=== PATIENT | female | born 1960 | race Caucasian/White ===

== ENCOUNTER 2019-04-25 12:46 | Inpatient (IN) ==
[2019-04-25] MEDS ORDERED: cefTRIAXone 2,000 MG in Water for inj. (sterile) 10 ML IVP ONE (12:48)
[2019-04-25] MEDS ORDERED: methylPREDNISolone 125 MG/2 ML VIAL IVP ONE (12:48)
[2019-04-25] MEDS ORDERED: Ipratropium/Albuterol Neb 3 ML IH ONE (12:48)
[2019-04-25] MEDS ORDERED: Azithromycin 500 MG in 0.9 % Sodium Chloride 250 ML IVPB ONE (12:48)
[2019-04-25] MEDS ORDERED: 0.9 % Sodium Chloride 1,000 ML IVC ONE (12:48)
--- NOTE | 2019-04-25 12:55 | Emergency Department Note ---
Disposition Clinical Impression: Community acquired pneumonia Qualifiers: Laterality: unspecified laterality Qualified Code(s): J18.9 - Pneumonia, unspecified organism Disposition: Admitted As Inpatient Condition: Fair Time of Disposition: 14:24 SOB HPI - General Chief Complaint: ED Shortness of Breath/Dyspnea Stated Complaint: low oxygen sat Time Seen by Provider: 04/25/19 12:48 Source: patient Mode of arrival: private vehicle Limitations: no limitations Nursing Notes Reviewed: Yes Vital Signs Reviewed: Yes - History of Present Illness Patient relates that she has had increased cough and shortness of breath. She has a home pulse ox and states that her saturations have been mainly in the 60s and 70s. She states she normally will run about 92%. In triage she is saturating 81% and was brought immediately to a room. She denies being on home oxygen. Chest have a cough which is nonproductive. She denies fevers, chills, palpitation or chest pain. She is not having abdominal pain, nausea or vomiting. She denies weakness or dizziness. She denies any lower extremity swelling or pain or immobilization. She reports a slight headache. She has been exposed to her who had an upper respiratory infection about a week ago. She is concerned because she was admitted for pneumonia in November. She denies history of recurrent breathing trouble including any type of asthma or COPD. Pt Subjective Complaint: shortness of breath, cough Onset (ago): day(s) Context: recent illness Severity: moderate, severe Consistency/Duration: gradually worsening Improves with: rest Worsens with: exertion Associated symptoms: Reports: cough, wheezing. Denies: chest pain, pain with inspiration, fever, sputum production, orthopnea, lower extremity pain, polyuria, polydipsia, parasthesias, palpitations, hemoptysis, diaphoresis, nausea/vomiting, syncope, abdominal pain, rash, sense of impending doom Treatment prior to arrival: none Cough present: Yes Cough Description: Voluntary, Moist, Rattling, Wheezy Cough Frequency: Intermittent Sputum production: No - Related Data Home oxygen amount: none Home Medications Medication Instructions Recorded Confirmed FLUoxetine HCl [Prozac] 80 mg PO DAILY 06/11/15 12/26/18 Lisinopril [Zestril] 10 mg PO DAILY 06/11/15 12/26/18 Cyanocobalamin (Vitamin B-12) 50 mcg PO DAILY 06/15/15 12/26/18 [Vitamin B-12] Vitamin D 1,000 mg PO DAILY 06/15/15 12/26/18 Ferrous Sulfate, Dried [Ferrous 500 mg MC DAILY 04/10/18 12/26/18 Sulfate] Allergies Allergy/AdvReac Type Severity Reaction Status Date / Time Penicillins Allergy Hives Verified 04/10/18 12:04 All systems ED: reviewed and negative except as stated. Past Medical History - Past Medical History Attestation: Yes The following information was validated with the patient. Source: patient, old records reviewed, nursing notes reviewed Medical history: Reports: arthritis, hypertension, seizures Surgical history: Reports: breast surgery Psychiatric history: Reports: anxiety, depression, panic disorder - Social History Smoking Status: Current every day smoker Smokeless Tobacco Status: No Alcohol use: Reports: none Drug use: Reports: none Physical Exam - General Limitations: no limitations General appearance: alert, in no apparent distress - Head Head exam: atraumatic, normocephalic, normal inspection - Eye Eye exam: Present: normal appearance, PERRL, EOMI - ENT ENT exam: normal exam, normal oropharynx, mucous membranes moist - Neck Neck exam: Present: normal inspection, full ROM, trachea midline. Absent: tenderness, lymphadenopathy - Chest Chest inspection: Present: normal inspection, symmetric chest wall rise - Respiratory Respiratory exam: Present: respiratory distress, wheezes, prolonged expiratory phase. Absent: accessory muscle use - Cardiovascular Cardiovascular exam: Present: regular rate, normal rhythm, normal heart sounds. Absent: tachycardia - Abdominal Exam Abdominal exam: Present: soft, Non-Tender, normal bowel sounds. Absent: tenderness, distention, guarding, rebound, rigidity - Extremities Exam Extremities exam: Present: normal inspection, full ROM, normal capillary refill. Absent: tenderness, pedal edema, calf tenderness - Expanded Lower Extremity Exam Hip/Pelvis exam: Present: normal inspection, full ROM Upper leg exam: Present: normal inspection, full ROM Knee exam: Present: normal inspection, full ROM Lower leg exam: Present: normal inspection, full ROM Ankle exam: Present: normal inspection, full ROM Foot/toe exam: Present: normal inspection, full ROM Neurovascular/Tendon exam: Present: normal capillary refill. Absent: motor deficit, sensory deficit, tendon deficit Gait: observed and normal - Back Exam Back exam: Present: normal inspection, full ROM. Absent: tenderness, CVA tenderness (R), CVA tenderness (L) - Neurological Exam Neurological exam: Present: alert, oriented X3, normal gait - Psychiatric Psychiatric exam: Present: normal affect, normal mood. Absent: agitated, anxious - Skin Skin exam: Present: warm, dry, intact, normal color. Absent: diaphoresis Course Course Narrative: 1430: Care is discussed with the patient, family and Dr. Rivera. The patient did not want to stay in the hospital and absolutely refuses transfer. She is willing to stay at this facility. I talked to Dr. Rivera and verbal orders have been obtained for her observation and further treatment. Vital Signs Temperature 97.8 F 04/25/19 12:48 Pulse Rate 77 04/25/19 12:48 Respiratory Rate 22 04/25/19 12:48 Blood Pressure 123/74 04/25/19 12:48 O2 Sat by Pulse Oximetry 94 04/25/19 12:48 Temperature 97.8 F 04/25/19 12:48 Pulse Rate 97 04/25/19 14:06 Respiratory Rate 18 04/25/19 14:06 Blood Pressure 110/73 04/25/19 14:06 O2 Sat by Pulse Oximetry 94 04/25/19 14:06 Oxygen Delivery Oxygen Delivery Nasal Cannula Shortness of Breath/Dyspnea - Differential Diagnosis Likely: acute exacerbation of chronic obstructive airways disease, asthma with exacerbation - Lab Data Lab results reviewed: Yes I reviewed the patient's lab results. Result diagrams: 04/25/19 13:13 04/25/19 13:13 Lab Results 04/25/19 04/25/19 04/25/19 Range/Units 13:13 13:13 13:13 WBC 13.6 H (4.3-11.1) K/mcL RBC 4.55 (3.82-4.97) M/mcL Hgb 14.0 (11.5-15.4) g/dL Hct 45.4 H (35.3-44.9) % MCV 99.8 (83.0-100.0) fL MCH 30.8 (28.0-33.3) pg MCHC 30.8 L (31.6-35.5) g/dL RDW 15.6 H (11.5-14.5) % Plt Count 196 (140-400) K/mcL MPV 11.0 (9.4-12.4) fL Immature Gran % 0.5 (0-4) % Seg Neutrophils % 80.4 % Lymphocytes % 10.7 % Monocytes % 6.5 % Eosinophils % 1.7 % Basophils % 0.2 % Neutrophils # 10.9 H (1.6-8.9) K/mcL Lymphocytes # 1.5 (0.6-4.6) K/mcL Monocytes # 0.9 (0.0-1.3) K/mcL Eosinophils # 0.2 (0.0-0.6) K/mcL Basophils # 0.0 (0.0-0.2) K/mcL PT 13.5 H (9.4-12.1) Seconds INR 1.2 APTT 31.1 (26.0-36.0) Seconds D-Dimer 779 H (0-500) ng/mLFEU Sodium 138 (136-145) mEq/L Potassium 4.1 (3.5-5.1) mEq/L Chloride 111 H (98-107) mEq/L Carbon Dioxide 16 L (23-29) mEq/L BUN 10 (6-20) mg/dL Creatinine 0.75 (0.60-1.20) mg/dL Est GFR ( Amer) > 60 (> 60) Est GFR (Non-Af Amer) > 60 (> 60) BUN/Creatinine Ratio 13 (6-26) Glucose 60 L (70-105) mg/dL Calculated Osmolality 283 (280-300) Lactic Acid (0.5-2.2) mmol/L Calcium 7.9 L (8.6-10.3) mg/dL Total Bilirubin 0.5 (0.3-1.0) mg/dL Direct Bilirubin 0.1 (0.0-0.2) mg/dL Indirect Bilirubin 0.4 (0.0-1.2) mg/dL AST 33 (13-39) Units/L ALT 10 (7-52) Units/L Alkaline Phosphatase 104 (34-104) Units/L Troponin I < 0.03 (< 0.04) ng/mL B-Natriuretic Peptide (Less than 100) pg/mL Serum Total Protein 6.5 (6.4-8.9) g/dL Albumin 3.7 (3.5-5.7) g/dL Globulin 2.8 (2.4-3.5) g/dL Albumin/Globulin Ratio 1.3 (1.1-2.2) 04/25/19 04/25/19 Range/Units 13:13 13:40 WBC (4.3-11.1) K/mcL RBC (3.82-4.97) M/mcL Hgb (11.5-15.4) g/dL Hct (35.3-44.9) % MCV (83.0-100.0) fL MCH (28.0-33.3) pg MCHC (31.6-35.5) g/dL RDW (11.5-14.5) % Plt Count (140-400) K/mcL MPV (9.4-12.4) fL Immature Gran % (0-4) % Seg Neutrophils % % Lymphocytes % % Monocytes % % Eosinophils % % Basophils % % Neutrophils # (1.6-8.9) K/mcL Lymphocytes # (0.6-4.6) K/mcL Monocytes # (0.0-1.3) K/mcL Eosinophils # (0.0-0.6) K/mcL Basophils # (0.0-0.2) K/mcL PT (9.4-12.1) Seconds INR APTT (26.0-36.0) Seconds D-Dimer (0-500) ng/mLFEU Sodium (136-145) mEq/L Potassium (3.5-5.1) mEq/L Chloride (98-107) mEq/L Carbon Dioxide (23-29) mEq/L BUN (6-20) mg/dL Creatinine (0.60-1.20) mg/dL Est GFR ( Amer) (> 60) Est GFR (Non-Af Amer) (> 60) BUN/Creatinine Ratio (6-26) Glucose (70-105) mg/dL Calculated Osmolality (280-300) Lactic Acid 1.7 (0.5-2.2) mmol/L Calcium (8.6-10.3) mg/dL Total Bilirubin (0.3-1.0) mg/dL Direct Bilirubin (0.0-0.2) mg/dL Indirect Bilirubin (0.0-1.2) mg/dL AST (13-39) Units/L ALT (7-52) Units/L Alkaline Phosphatase (34-104) Units/L Troponin I (< 0.04) ng/mL B-Natriuretic Peptide 124 H (Less than 100) pg/mL Serum Total Protein (6.4-8.9) g/dL Albumin (3.5-5.7) g/dL Globulin (2.4-3.5) g/dL Albumin/Globulin Ratio (1.1-2.2) - Radiology Data Radiology results reviewed: Yes I reviewed the patient's radiology results. Single view chest x-rays performed. This shows diffuse interstitial infiltrates. This is concerning for multifocal pneumonia. She does not appear to be in fluid overload with any cephalization of the venous system. I do not see effusion or pneumothorax. Cardiac silhouette is borderline enlarged. No other acute abnormality is seen. This is on my interpretation. Impressions Chest X-Ray 04/25/19 12:48 IMPRESSION: Progressive, diffuse bilateral pulmonary infiltrates. Findings are concerning for an atypical infectious/inflammatory process. D/ / Tremaine Gomes MD / Tremaine Gomes MD Interpreting Provider: Tremaine Gomes MD Critical Care Time Critical Care Time: Yes Total Critical Care Time: 45 Attestation: As this patient did present with signs and symptoms of potential life- threatening illness requiring my urgent intervention, total critical care time in this patient's care has been 45 minutes, not withstanding separately reportable procedures.
[2019-04-25 13:19] LABS: Basophils % 0.2 %; Eosinophils # 0.2 K/mcL (0.0-0.6); Eosinophils % 1.7 %; Hematocrit 45.4 % (35.3-44.9); Immature Granulocytes % 0.5 % (0-4); Lymphocytes # 1.5 K/mcL (0.6-4.6); Lymphocytes % 10.7 %; Mean Corpuscular HGB Conc 30.8 g/dL (31.6-35.5); Mean Corpuscular Hemoglobin 30.8 pg (28.0-33.3); Mean Corpuscular Volume 99.8 fL (83.0-100.0); Monocytes # 0.9 K/mcL (0.0-1.3); Monocytes % 6.5 %; Neutrophils # 10.9 K/mcL (1.6-8.9); Platelet Count 196 K/mcL (140-400); Red Blood Count 4.55 M/mcL (3.82-4.97); Red Cell Distribution Width 15.6 % (11.5-14.5); Segmented Neutrophils % 80.4 %; White Blood Count 13.6 K/mcL (4.3-11.1)
[2019-04-25 13:27] LABS: INR 1.2; Prothrombin Time 13.5 Seconds (9.4-12.1)
[2019-04-25 13:29] LABS: Activated Partial Thrombo Time 31.1 Seconds (26.0-36.0)
[2019-04-25 13:38] LABS: Alanine Aminotransferase 10 Units/L (7-52); Albumin 3.7 g/dL (3.5-5.7); Albumin/Globulin Ratio 1.3 (1.1-2.2); Alkaline Phosphatase 104 Units/L (34-104); Aspartate Amino Transferase 33 Units/L (13-39); BUN/Creatinine Ratio 13 (6-26); Bilirubin,Direct 0.1 mg/dL (0.0-0.2); Bilirubin,Indirect 0.4 mg/dL (0.0-1.2); Bilirubin,Total 0.5 mg/dL (0.3-1.0); Blood Urea Nitrogen 10 mg/dL (6-20); Calcium 7.9 mg/dL (8.6-10.3); Carbon Dioxide 16 mEq/L (23-29); Chloride 111 mEq/L (98-107); Globulin 2.8 g/dL (2.4-3.5); Glucose 60 mg/dL (70-105); Osmolality,Calculated 283 (280-300); Potassium 4.1 mEq/L (3.5-5.1); Sodium 138 mEq/L (136-145); Total Protein 6.5 g/dL (6.4-8.9); Troponin I < 0.03 ng/mL (< 0.04); eGFR For African Americans > 60 (> 60); eGFR For Non-African Americans > 60 (> 60)
[2019-04-25] MEDS ORDERED: Ketorolac 30 MG/ML VIAL IVP ONE (14:44)
[2019-04-25] MEDS ORDERED: *HR* LORazepam 2 MG/ML VIAL IVP ONE (14:44)
[2019-04-25] MEDS ORDERED: Albuterol 2.5 MG/3 ML NEBULIZER IH PRN (15:03)
[2019-04-25] MEDS ORDERED: Ondansetron 4 MG/2 ML VIAL IVP PRN (15:03)
[2019-04-25] MEDS ORDERED: MOM Conc 10 ML UD.LIQ PO PRN (15:03)
[2019-04-25] MEDS ORDERED: Mag Hydrox/Al Hydrox/Simeth 30 ML UDC PO PRN (15:03)
[2019-04-25] MEDS ORDERED: Naloxone 0.4 MG/ML INJ IVP PRN (15:03)
[2019-04-25] MEDS ORDERED: 0.9 % Sodium Chloride 1,000 ML IVC SCH (15:03)
--- NOTE | 2019-04-25 16:21 | Electrocardiograph Report ---
[place] [id number] Test Date: 2019-04-25 Pat Name: Etta Goldsmith Department: EDP-16 Room: [facility] Gender: F Case Managers: : 1960 Requested By: Jonathan Nayak Order Number: [id number] Reading MD: Bhupendra Dorman Measurements Intervals [place] Rate: 79 P: 57 NE: 144 QRS: 61 QRSD: 102 T: 26 QT: 435 QTc: 499 Interpretive Statements Sinus rhythm Borderline prolonged QT interval Electronically Signed On 04-25-2019 16:19:54 EDT by Bhupendra Dorman
[2019-04-25] MEDS: ALPRAZolam 0.5 MG TABLET PO PRN ×2 (16:45→23:11)
[2019-04-25] MEDS: predniSONE 20 MG TABLET PO SCH (16:46)
[2019-04-25] MEDS: traMADol 50 MG TABLET PO PRN (16:46)
[2019-04-25] MEDS: Ipratropium/Albuterol Neb 3 ML IH SCH ×2 (17:59→22:46)
--- NOTE | 2019-04-25 19:29 | Internal Med History&Physical ---
Date of Encounter: 04/25/19 Time of Encounter: 18:50 Assessment and Plan (1) Community acquired pneumonia Current visit: Yes Status: Acute She was given IV Rocephin and Zithromax in emergency room. Urine for Legionella antigen and respiratory infection panel will be ordered. Levaquin will be given with lactobacillus. Qualifiers: Laterality: unspecified laterality Qualified Code(s): J18.9 - Pneumonia, unspecified organism (2) Hypertension Current visit: Yes Status: Acute Lisinopril will be held and blood pressure monitored. Qualifiers: Hypertension type: essential hypertension Qualified Code(s): I10 - Essential (primary) hypertension (3) Seizure disorder Current visit: Yes Status: Acute Continue Neurontin and Lamictal (4) Bipolar 1 disorder Current visit: Yes Status: Acute Continue Prozac and Xanax. (5) Weight loss Current visit: Yes Status: Acute TSH will be ordered. Internal Medicine - H&P: HPI Chief complaint: Dyspnea, hypoxemia Admitted From: Emergency Dept Plans for Post Hospital Care: Home History of present illness: Ms. Goldsmith is a 58 year old female who came to emergency room stating she had onset of dyspnea approximately April 23. There was minimal cough. She denies fever vomiting diarrhea or significant myalgias/arthralgias. She reports a headache. Over the next 2 days the dyspnea worsened gradually. She checked oxygen saturation this morning and found it to be 45%. It gradually pearl but remained below 90% generally. She came to emergency room and was evaluated and was found to have evidence of bilateral pneumonia. She was admitted to [facility] floor for ongoing care needs. She states her had a "chest cold" over the weekend. She reports she was treated for pneumonia December 2018 at a [facility]. Chest CT 12/26/2018 showed diffuse nonspecific groundglass lung infiltrates. She has smoked since age 8 never exceeding 1 pack per day. She does not recall PFTs. She reports she was given supplemental oxygen for short time after discharge from the [facility] earlier this year but she does not use oxygen at present. She denies testing for VICKY. Past Med Surg Social Fam HX - Past Medical History Medical history: arthritis, hypertension, seizures Additional medical history: last seizure march 2018 Psychiatric history: anxiety, depression, panic disorder - Past Surgical History Surgical History: breast surgery Additional surgical history: gastric bypass. metal plates to rt side ribs - Social History Smoking Status: Current every day smoker Smokeless Tobacco Status: No Alcohol use: none Drug use: none Internal Medicine - H&P: Meds FLUoxetine HCl [Prozac] 80 mg PO DAILY 06/11/15 [History] Lisinopril [Zestril] 10 mg PO DAILY 06/11/15 [History] Cyanocobalamin (Vitamin B-12) [Vitamin B-12] 50 mcg PO DAILY 06/15/15 [History] Vitamin D 1,000 mg PO DAILY 06/15/15 [History] Ferrous Sulfate, Dried [Ferrous Sulfate] 500 mg MC DAILY 04/10/18 [History] Gabapentin [Neurontin] 800 mg PO TID 04/25/19 [History] GuaiFENesin/Codeine [Robitussin w/Codeine] 5 ml PO 04/25/19 [History] Ibuprofen [Ibu] 800 mg PO TID 04/25/19 [History] Lamotrigine [Lamictal (Blue)] 100 mg PO BID 04/25/19 [History] Polyethylene Glycol 3350 [MiraLAX] 1 packet PO DAILY 04/25/19 [History] Allergy/AdvReac Type Severity Reaction Status Date / Time Penicillins Allergy Hives Verified 04/10/18 12:04 All Systems PM: A 10-system review of systems was performed and is negative for pertinent findings except as documented above in the HPI. Review of systems: Gen.: She states her weight has decreased approximately 20 pounds in the past 4 months unintentionally Cardiovascular: She has history of hypertension but denies AK heart failure angina DVT or pulmonary embolus Respiratory: As per history of present illness GI: She had gastric bypass surgery remotely. She has had cholecystectomy. She denies disorders of her liver or exocrine pancreas : She denies hematuria dysuria or kidney stones Neurologic: She reports history of grand mal seizures with most recent seizure March 2018. She denies large distribution strokes. Endocrine: She denies diabetes thyroid disease or hyperlipidemia Hematology/oncology: She denies blood disorders cancers or anemia Psychiatric: She has anxiety and bipolar disorder. [place] skeletal: She has DJD but denies gout or other bone joint or muscle disorders. - Constitutional Vitals: Temp Pulse Resp BP Pulse Ox 97.7 F 75 16 114/74 93 04/25/19 18:24 04/25/19 18:24 04/25/19 18:24 04/25/19 18:24 04/25/19 18:24 Exam: Gen.: She is a well-developed well-nourished female resting comfortably in bed who appears in no acute distress. She did not cough during examination HEENT: Head is atraumatic and normocephalic. Eyes: EOMI. There is no scleral icterus. Mouth: Mucosa is moist. Neck: Supple and nontender. There is no thyromegaly or adenopathy noted. Heart: Regular without murmurs gallops or ectopics Lungs: She has bilateral diffuse rhonchi and coarse crackles that do not clear with coughing. Abdomen: Soft and nontender. No masses or guarding are noted. Extremities: There is no cyanosis edema or clubbing noted. Dorsalis pedis and posterior tibial pulses are 1-2 over 2 bilaterally. Neurologic: Mental status: She is talkative and a good historian. Cranial nerves: Smile is symmetric. Forehead wrinkles bilaterally. Tongue protrudes midline. EOMI. Motor: There is no pronator drift. Cerebellar: Finger to nose is intact bilaterally. Skin: Warm and dry Internal Med - H&P Results - Labs CBC & Chem 7: 04/25/19 13:13 04/25/19 13:13 Labs: Short CBC 04/25/19 Range/Units 13:13 WBC 13.6 H (4.3-11.1) K/mcL Hgb 14.0 (11.5-15.4) g/dL Hct 45.4 H (35.3-44.9) % Plt Count 196 (140-400) K/mcL Neutrophils # 10.9 H (1.6-8.9) K/mcL BMP 04/25/19 13:13 Sodium 138 Potassium 4.1 Chloride 111 H Carbon Dioxide 16 L BUN 10 Creatinine 0.75 Glucose 60 L Calcium 7.9 L Cardiac Enzymes 04/25/19 Range/Units 13:13 Troponin I < 0.03 (< 0.04) ng/mL Liver Function 04/25/19 Range/Units 13:13 Total Bilirubin 0.5 (0.3-1.0) mg/dL Direct Bilirubin 0.1 (0.0-0.2) mg/dL AST 33 (13-39) Units/L ALT 10 (7-52) Units/L Alkaline Phosphatase 104 (34-104) Units/L Albumin 3.7 (3.5-5.7) g/dL - Impressions ITS Impressions Chest X-Ray 04/25/19 12:48 IMPRESSION: Progressive, diffuse bilateral pulmonary infiltrates. Findings are concerning for an atypical infectious/inflammatory process. D/ / 04/25/2019 14:01:21 Tremaine Gomes MD / nagi Interpreting Provider: Tremaine Gomes MD
[2019-04-25] MEDS: Ibuprofen 800 MG TABLET PO SCH (20:15)
[2019-04-25] MEDS: Lactobacillus 1 EACH CAP.SPRINK PO SCH (20:15)
[2019-04-25] MEDS: lamoTRIgine 100 MG TABLET PO SCH (20:15)
[2019-04-25] MEDS: levoFLOXacin 750 MG/150 ML 750 MG/150 ML BAG IVPB SCH (20:16)
[2019-04-25] MEDS: Gabapentin 400 MG CAPSULE PO SCH (20:16)
[2019-04-25] MEDS: 0.45 % Sodium Chloride w/KCl 20 MEQ/1,000 ML MLS IVC SCH (20:17)
[2019-04-26] MEDS: Ipratropium/Albuterol Neb 3 ML IH SCH ×3 (03:15→15:15)
[2019-04-26] MEDS: ALPRAZolam 0.5 MG TABLET PO PRN ×3 (05:42→20:58)
[2019-04-26] MEDS: 0.45 % Sodium Chloride w/KCl 20 MEQ/1,000 ML MLS IVC SCH (05:43)
[2019-04-26 06:23] LABS: Basophils % 0.1 %; Hematocrit 37.5 % (35.3-44.9); Hemoglobin 12.1 g/dL (11.5-15.4); Immature Granulocytes % 0.4 % (0-4); Lymphocytes # 0.7 K/mcL (0.6-4.6); Lymphocytes % 3.5 %; Mean Corpuscular HGB Conc 32.3 g/dL (31.6-35.5); Mean Corpuscular Hemoglobin 31.1 pg (28.0-33.3); Mean Corpuscular Volume 96.4 fL (83.0-100.0); Mean Platelet Volume 10.8 fL (9.4-12.4); Monocytes % 4.7 %; Platelet Count 202 K/mcL (140-400); Red Blood Count 3.89 M/mcL (3.82-4.97); Red Cell Distribution Width 15.4 % (11.5-14.5); Segmented Neutrophils % 91.3 %; White Blood Count 20.2 K/mcL (4.3-11.1)
[2019-04-26 06:27] LABS: Neutrophils # 18.4 K/mcL (1.6-8.9)
[2019-04-26 06:45] LABS: BUN/Creatinine Ratio 11 (6-26); Blood Urea Nitrogen 8 mg/dL (6-20); Calcium 8.3 mg/dL (8.6-10.3); Carbon Dioxide 22 mEq/L (23-29); Chloride 114 mEq/L (98-107); Glucose 155 mg/dL (70-105); Osmolality,Calculated 291 (280-300); Potassium 4.7 mEq/L (3.5-5.1); Sodium 140 mEq/L (136-145); eGFR For African Americans > 60 (> 60); eGFR For Non-African Americans > 60 (> 60)
[2019-04-26] MEDS: levoFLOXacin 750 MG/150 ML 750 MG/150 ML BAG IVPB SCH (08:40)
[2019-04-26] MEDS: FLUoxetine 20 MG CAPSULE PO SCH (08:44)
[2019-04-26] MEDS: predniSONE 20 MG TABLET PO SCH ×2 (08:44→17:22)
[2019-04-26] MEDS: Gabapentin 400 MG CAPSULE PO SCH ×3 (08:44→20:58)
[2019-04-26] MEDS: Lactobacillus 1 EACH CAP.SPRINK PO SCH ×2 (08:44→20:58)
[2019-04-26] MEDS: lamoTRIgine 100 MG TABLET PO SCH ×2 (08:44→20:58)
[2019-04-26] MEDS: Ibuprofen 800 MG TABLET PO SCH ×3 (08:45→21:02)
[2019-04-26 09:01] LABS: % Iron Saturation 5 % (15-50); Iron 12 mcg/dL (50-170); Transferrin 188 mg/dL (203-362)
[2019-04-26 09:19] LABS: Ferritin 63 ng/mL (10-120)
--- NOTE | 2019-04-26 10:52 | Internal Med Progress Note ---
Date of Encounter: 04/26/19 Time of Encounter: 10:25 - Assessment and plan (1) Community acquired pneumonia Current Visit: Yes Status: Acute Assessment and plan: April 26. Respiratory infection panel and Legionella antigen pending. Pro- calcitonin level WNL at 0.09. Hold further antibiotics and recheck labs in a.m. Qualifiers: Laterality: unspecified laterality Qualified Code(s): J18.9 - Pneumonia, unspecified organism (2) Hypertension Current Visit: Yes Status: Acute Assessment and plan: April 26. Remain off lisinopril. Qualifiers: Hypertension type: essential hypertension Qualified Code(s): I10 - Es sential (primary) hypertension (3) Seizure disorder Current Visit: Yes Status: Acute Assessment and plan: April 26. Continue Neurontin and Lamictal (4) Bipolar 1 disorder Current Visit: Yes Status: Acute Assessment and plan: April 26. Continue Prozac and Xanax (5) Weight loss Current Visit: Yes Status: Acute Assessment and plan: April 26. TSH slightly suppressed at 0.247. Recheck in a.m. with T4 and T3. (6) Low serum iron Current Visit: Yes Status: Acute Assessment and plan: April 26. Iron profile showed iron 12, transferrin saturation 5%, transferrin 188, and ferritin 63. B12 level WNL at 749. Start ferrous sulfate with ascorbic acid in a.m. - Subjective Interval history: April 26. She has no new complaints - Constitutional Vitals: Temp Pulse Resp BP Pulse Ox 97.9 F 69 16 101/67 92 04/26/19 06:35 04/26/19 06:35 04/26/19 08:58 04/26/19 06:35 04/26/19 08:58 Exam: She is lying in bed and appears in no significant distress. Oxygen saturation fluctuated between 78-90%. Heart was regular without murmurs gallops or ectopics. Extremities show no edema. Lungs show no wheezes or crackles. I reviewed her medications and lab results. Internal Medicine: Result - Labs CBC & Chem 7: 04/26/19 06:20 04/26/19 06:20 Labs: Short CBC 04/25/19 04/26/19 Range/Units 13:13 06:20 WBC 13.6 H 20.2 H (4.3-11.1) K/mcL Hgb 14.0 12.1 D (11.5-15.4) g/dL Hct 45.4 H 37.5 (35.3-44.9) % Plt Count 196 202 (140-400) K/mcL Neutrophils # 10.9 H 18.4 H (1.6-8.9) K/mcL BMP 04/25/19 04/26/19 13:13 06:20 Sodium 138 140 Potassium 4.1 4.7 Chloride 111 H 114 H Carbon Dioxide 16 L 22 L BUN 10 8 Creatinine 0.75 0.73 Glucose 60 L 155 H Calcium 7.9 L 8.3 L Cardiac Enzymes 04/25/19 Range/Units 13:13 Troponin I < 0.03 (< 0.04) ng/mL Liver Function 04/25/19 Range/Units 13:13 Total Bilirubin 0.5 (0.3-1.0) mg/dL Direct Bilirubin 0.1 (0.0-0.2) mg/dL AST 33 (13-39) Units/L ALT 10 (7-52) Units/L Alkaline Phosphatase 104 (34-104) Units/L Albumin 3.7 (3.5-5.7) g/dL - ABG Interpretation ABG results: PT/INR, D-dimer PT 13.5 Seconds (9.4-12.1) H 04/25/19 13:13 D-Dimer 779 ng/mLFEU (0-500) H 04/25/19 13:13 - Impressions Impressions Chest X-Ray 04/25/19 12:48 IMPRESSION: Progressive, diffuse bilateral pulmonary infiltrates. Findings are concerning for an atypical infectious/inflammatory process. D/ / 04/25/2019 14:01:21 Tremaine Gomes MD / bcarter Interpreting Provider: Tremaine Gomes MD Consult Discharge Plan - Plan Referrals: Marcy Murphy, PLAN MANAGER [Primary Care Provider] - 1 week
[2019-04-26 11:22] LABS: Adenovirus Not Detected (Not Detect); Bordetella Pertussis Not Detected (Not Detect); Chlamydophila pneumoniae Not Detected (Not Detect); Coronavirus 229E Not Detected (Not Detect); Coronavirus HKU1 Not Detected (Not Detect); Coronavirus NL63 Not Detected (Not Detect); Coronavirus OC43 Not Detected (Not Detect); Human Metapneumovirus Not Detected (Not Detect); Human Rhinovirus/Enterovirus Not Detected (Not Detect); Influenza A Subtype 2009 H1 Not Detected (Not Detect); Influenza A Untypeable Not Detected (Not Detect); Influenza B Not Detected (Not Detect); Mycoplasma pneumoniae Not Detected (Not Detect); Parainfluenza Virus 1 Not Detected (Not Detect); Parainfluenza Virus 2 Not Detected (Not Detect); Parainfluenza Virus 3 Not Detected (Not Detect); Parainfluenza Virus 4 Not Detected (Not Detect); Respiratory Syncytial Virus Not Detected (Not Detect)
[2019-04-26] MEDS ORDERED: cefTRIAXone 2,000 MG in Water for inj. (sterile) 20 ML IVPB SCH (12:00)
[2019-04-26] MEDS ORDERED: Azithromycin 500 MG in 0.9 % Sodium Chloride 250 ML IVPB SCH (12:00)
[2019-04-26] MEDS: traMADol 50 MG TABLET PO PRN ×2 (13:14→17:21)
[2019-04-27] MEDS: ALPRAZolam 0.5 MG TABLET PO PRN (03:35)
[2019-04-27] MEDS ORDERED: *HR* Enoxaparin 40 MG/0.4 ML SYRINGE SQ SCH (06:00)
[2019-04-27] MEDS: traMADol 50 MG TABLET PO PRN (06:07)
[2019-04-27] MEDS ORDERED: Ascorbic Acid 500 MG TABLET PO SCH (06:30)
[2019-04-27 06:37] VITALS: BP 107/69
[2019-04-27 07:38] LABS: Basophils % 0.1 %; Eosinophils # 0.2 K/mcL (0.0-0.6); Eosinophils % 1.1 %; Hematocrit 36.6 % (35.3-44.9); Hemoglobin 11.3 g/dL (11.5-15.4); Immature Granulocytes % 0.5 % (0-4); Lymphocytes # 1.8 K/mcL (0.6-4.6); Lymphocytes % 11.7 %; Mean Corpuscular HGB Conc 30.9 g/dL (31.6-35.5); Mean Corpuscular Hemoglobin 30.4 pg (28.0-33.3); Mean Corpuscular Volume 98.4 fL (83.0-100.0); Mean Platelet Volume 11.3 fL (9.4-12.4); Monocytes # 1.1 K/mcL (0.0-1.3); Monocytes % 7.2 %; Neutrophils # 11.9 K/mcL (1.6-8.9); Platelet Count 196 K/mcL (140-400); Red Blood Count 3.72 M/mcL (3.82-4.97); Red Cell Distribution Width 15.9 % (11.5-14.5); Segmented Neutrophils % 79.4 %
[2019-04-27 07:47] LABS: BUN/Creatinine Ratio 10 (6-26); Blood Urea Nitrogen 7 mg/dL (6-20); Calcium 8.3 mg/dL (8.6-10.3); Carbon Dioxide 23 mEq/L (23-29); Chloride 111 mEq/L (98-107); Glucose 82 mg/dL (70-105); Osmolality,Calculated 285 (280-300); Potassium 3.9 mEq/L (3.5-5.1); Sodium 139 mEq/L (136-145); eGFR For African Americans > 60 (> 60); eGFR For Non-African Americans > 60 (> 60)
[2019-04-27] MEDS: Ibuprofen 800 MG TABLET PO SCH ×2 (08:16→15:12)
[2019-04-27] MEDS: Lactobacillus 1 EACH CAP.SPRINK PO SCH (08:16)
[2019-04-27] MEDS: Gabapentin 400 MG CAPSULE PO SCH ×2 (08:16→15:12)
[2019-04-27] MEDS: predniSONE 20 MG TABLET PO SCH (08:16)
[2019-04-27] MEDS: lamoTRIgine 100 MG TABLET PO SCH (08:17)
[2019-04-27] MEDS: FLUoxetine 20 MG CAPSULE PO SCH (08:17)
[2019-04-27 09:35] LABS: Triiodothyronine (T3) Free 2.56 pg/mL (2.50-3.90)
--- NOTE | 2019-04-27 11:21 | Discharge Summary ---
Orders not resulted at time of discharge: Pending orders 04/25/19 13:13 Culture,Blood [] Stat Date of Encounter: 04/27/19 Time of Encounter: 11:10 - Discharge Diagnosis (1) Community acquired pneumonia Priority: Primary Status: Acute Qualifiers: Laterality: unspecified laterality Qualified Code(s): J18.9 - Pneumonia, unspecified organism (2) Hypertension Priority: Secondary Status: Acute Qualifiers: Hypertension type: essential hypertension Qualified Code(s): I10 - Essential (primary) hypertension (3) Seizure disorder Priority: Secondary Status: Acute (4) Bipolar 1 disorder Priority: Secondary Status: Chronic (5) Weight loss Priority: Secondary Status: Acute (6) Low serum iron Priority: Secondary Status: Chronic Hospital course: Ms. Goldsmith is a 58 year old female who came to emergency room stating she had onset of dyspnea approximately April 23. There was minimal cough. She denies fever vomiting diarrhea or significant myalgias/arthralgias. She reports a headache. Over the next 2 days the dyspnea worsened gradually. She checked oxygen saturation this morning and found it to be 45%. It gradually pearl but remained below 90% generally. She came to emergency room and was evaluated and was found to have evidence of bilateral pneumonia. She was admitted to [facility] floor for ongoing care needs. Initial orders were written by the emergency room physician. I saw her on April 25 and performed a history and physical. She was started on IV Rocephin and Zithromax in emergency room. I gave her a dose of IV lactobacillus. Pro-calcitonin level returned WNL at 0.09. Repeat level on April 27 returned WNL at 0.04. Antibiotics will not be continued at discharge. WBC initially pearl to 20.2 K but had decreased to 15.0 by day of discharge with resolution of left shift. She remained afebrile last 24 hours of hospitalization. Respiratory infection PCR serology panel returned negative. She required supplemental oxygen during her hospital stay. Room air oximetry will be checked prior to discharge to determine if supplemental home oxygen is needed. Anemia testing showed iron 12, transferrin saturation 5%, transferrin 188, ferritin 63, and B12 749. She will take ferrous sulfate with ascorbic acid at discharge. On April 27 she felt stable for discharge home. Home health services will be ordered. She will follow with her PCP Marcy Murphy CNP within 1 week. - Time Spent with Patient Total time spent providing and/or coordinating discharge services: - Discharge Medications Prescriptions: New Ferrous Sulfate 325 mg PO DAILY@0630 #30 tablet Ascorbic Acid [Vitamin C] 500 mg PO DAILY@0630 #30 tablet ALPRAZolam [Xanax 0.5 MG Tablet] 0.5 mg PO Q6H PRN 3 Days #12 tablet PRN Reason: Anxiety Continued FLUoxetine HCl [Prozac] 80 mg PO DAILY Vitamin D 1,000 mg PO DAILY Cyanocobalamin (Vitamin B-12) [Vitamin B-12] 50 mcg PO DAILY Ibuprofen [Ibu] 800 mg PO TID Polyethylene Glycol 3350 [MiraLAX] 1 packet PO DAILY Gabapentin [Neurontin] 800 mg PO TID Lamotrigine [Lamictal (Blue)] 100 mg PO BID GuaiFENesin/Codeine [ROBITUSSIN w/CODEINE] 5 ml PO Discontinued Lisinopril [Zestril] 10 mg PO DAILY Ferrous Sulfate, Dried [Ferrous Sulfate] 500 mg MC DAILY Home Medications: FLUoxetine HCl [Prozac] 80 mg PO DAILY 06/11/15 [History] Cyanocobalamin (Vitamin B-12) [Vitamin B-12] 50 mcg PO DAILY 06/15/15 [History] Vitamin D 1,000 mg PO DAILY 06/15/15 [History] Gabapentin [Neurontin] 800 mg PO TID 04/25/19 [History] GuaiFENesin/Codeine [ROBITUSSIN w/CODEINE] 5 ml PO 04/25/19 [History] Ibuprofen [Ibu] 800 mg PO TID 04/25/19 [History] Lamotrigine [Lamictal (Blue)] 100 mg PO BID 04/25/19 [History] Polyethylene Glycol 3350 [MiraLAX] 1 packet PO DAILY 04/25/19 [History] ALPRAZolam [Xanax 0.5 MG Tablet] 0.5 mg PO Q6H PRN 3 Days #12 tablet 04/27/19 [Rx] Ascorbic Acid [Vitamin C] 500 mg PO DAILY@0630 #30 tablet 04/27/19 [Rx] Ferrous Sulfate 325 mg PO DAILY@0630 #30 tablet 04/27/19 [Rx] Allergies/Adverse Reactions: Allergy/AdvReac Type Severity Reaction Status Date / Time Penicillins Allergy Hives Verified 04/10/18 12:04 Date of admission: 04/26/19 10:33 Primary care physician: Marcy Murphy CNP - Constitutional Vitals: Temp Pulse Resp BP Pulse Ox 99.1 F 85 20 107/69 92 04/27/19 06:32 04/27/19 06:32 04/27/19 06:32 04/27/19 06:32 04/27/19 06:32 - Patient Status Disposition: Home Health Service Condition: Fair - Discharge Instructions Follow Up With: Marcy Murphy CNP [Primary Care Provider] - 1 week - Diet and Activity Activity: resume usual activities as tolerated Diet: advance to your usual diet
--- NOTE | 2019-04-27 11:27 | Physician Discharge Referral ---
Home Health/Hosp Referral Info Transfer to: Home Health Attending Provider: Miguel Provider in Charge Post Discharge: PCP (Marcy Murphy CNP) - Diagnosis (1) Community acquired pneumonia Priority: Primary Status: Acute (2) Hypertension Priority: Secondary Status: Acute (3) Seizure disorder Priority: Secondary Status: Acute (4) Bipolar 1 disorder Priority: Secondary Status: Chronic (5) Weight loss Priority: Secondary Status: Acute (6) Low serum iron Priority: Secondary Status: Chronic - Respiratory Orders Smoking Cessation: Smoking cessation has been advised. For more information, call the [place] Tobacco Quit Line at 6-827-TWHW-NOW. - Diet/Nutrition Diet/Nutrition Orders: Regular - Activity Activity Orders: Ambulate - Services Needed Following services are medically necessary services: Nursing, Home Health Aide, Physical Therapy, Occupational Therapy - Transfer Medications Prescriptions: Ferrous Sulfate 325 mg PO DAILY@0630 #30 tablet Ascorbic Acid [Vitamin C] 500 mg PO DAILY@0630 #30 tablet ALPRAZolam [Xanax 0.5 MG Tablet] 0.5 mg PO Q6H PRN 3 Days #12 tablet PRN Reason: Anxiety Home Medications: FLUoxetine HCl [Prozac] 80 mg PO DAILY 06/11/15 [History] Cyanocobalamin (Vitamin B-12) [Vitamin B-12] 50 mcg PO DAILY 06/15/15 [History] Vitamin D 1,000 mg PO DAILY 06/15/15 [History] Gabapentin [Neurontin] 800 mg PO TID 04/25/19 [History] GuaiFENesin/Codeine [ROBITUSSIN w/CODEINE] 5 ml PO 04/25/19 [History] Ibuprofen [Ibu] 800 mg PO TID 04/25/19 [History] Lamotrigine [Lamictal (Blue)] 100 mg PO BID 04/25/19 [History] Polyethylene Glycol 3350 [MiraLAX] 1 packet PO DAILY 04/25/19 [History] ALPRAZolam [Xanax 0.5 MG Tablet] 0.5 mg PO Q6H PRN 3 Days #12 tablet 04/27/19 [Rx] Ascorbic Acid [Vitamin C] 500 mg PO DAILY@0630 #30 tablet 04/27/19 [Rx] Ferrous Sulfate 325 mg PO DAILY@0630 #30 tablet 04/27/19 [Rx] Allergies/Adverse Reactions: Allergy/AdvReac Type Severity Reaction Status Date / Time Penicillins Allergy Hives Verified 04/10/18 12:04 Certification: Further, I certify that my clinical findings support that this patient is homebound (i.e. absences from home require considerable and taxing effort and are for medical reasons or taoism services or infrequently or short duration when for other reasons) because: Homebound Reason: Leaving home requires considerable and taxing effort due to condition (Dyspnea on exertion, bilateral pneumonia) Attestation: My signature below is to certify that this patient is under my care and that I, or nurse practitioner, or a physician's licensed physical therapy assistant working with me, has a [id number] encounter with this patient.
[2019-04-27] MEDS ORDERED: FLU Vac QV 19-20 (18YR+)/PF 0.5 ML SYRINGE IM ONE (12:50)
[2019-04-27] MEDS ORDERED: FLU Vac QV 19-20 (6Month+)/PF 0.5 ML SYRINGE IM ONE (13:03)
== END 2019-04-27 15:30 | disposition home health service (06) | DRG 194 ==
LOC: INPPIK 12:46 → EMEROOPIK 12:46 → INPPIK 15:27
PROVIDERS: ADMIT Internal Medicine; ATTEND Internal Medicine